=== PATIENT | male | born 1995 | race American Indian/Alaskan Native ===

== ENCOUNTER 2022-03-05 16:50 | Emergency (ER) | payer OTHER ==
[2022-03-05] MEDS ORDERED: ALPRAZolam 0.25 MG TAB PO ONE (17:44)
[2022-03-05] MEDS ORDERED: PANTOPRAZOLE 40 MG TAB PO ONE (17:44)
[2022-03-05] MEDS ORDERED: ACETAMINOPHEN 325 MG TAB PO ONE (17:44)
[2022-03-05] MEDS ORDERED: KETOROLAC 30 MG/1 ML INJ IM ONE (17:44)
--- NOTE | 2022-03-05 17:46 | Emergency Department Report ---
<MCKAYLA DIXON - Last Filed: 03/05/22 20:08> ED General Adult HPI - General Chief complaint: Extremity Problem,Nontraumatic Stated complaint: RT ARM PAIN PUI?: No Time Seen by Provider: 03/05/22 17:42 Source: patient, family, RN notes reviewed Mode of arrival: Ambulatory Limitations: No Limitations - History of Present Illness Initial comments: This patient is a pleasant and cooperative 26-year-old gentleman who is right- hand dominant, who presents to the ER today with a complaint of nontraumatic right posterior trapezius, and shoulder pain, that goes down his right posterior upper extremity. He also endorses central chest tightness. He denies DVT and PE risk factors. He has not taken any pain medication so far. He may have done repetitive heavy lifting but he is not certain. Denies additional injuries and complaints. Chest tightness does not radiate to the back, arms or neck. Denies vomiting, diaphoresis and exertional shortness of breath States pain started about 90 minutes prior to ER arrival -: hour(s) Location: chest, back, right, upper extremity Radiation: extremity Quality: aching Consistency: other (Chest pain central, chest wall, constant, increases with palpation. Right posterior muscular extremity increases with palpation and range of motion. It decreases with rest) - Related Data Previous Rx's Medication Instructions Recorded Last Taken Type Acetaminophen [Non-Aspirin Extra 500 mg PO Q6HR PRN #30 tablet 03/05/22 Unknown Rx Strength] Famotidine [Pepcid] 20 mg PO BID #30 tablet 03/05/22 Unknown Rx Ibuprofen [Motrin] 600 mg PO Q8H PRN #30 tablet 03/05/22 Unknown Rx Allergies Allergy/AdvReac Type Severity Reaction Status Date / Time No Known Allergies Allergy Verified 03/05/22 17:12 ED Review of Systems Constitutional: denies: fever Eyes: denies: eye discharge ENT: denies: congestion Respiratory: denies: cough Cardiovascular: chest pain Gastrointestinal: denies: abdominal pain, vomiting Musculoskeletal: myalgia Neurological: paresthesias ED Past Medical Hx - Medications Home Medications: Home Medications Medication Instructions Recorded Confirmed Last Taken Type Acetaminophen [Non-Aspirin Extra 500 mg PO Q6HR PRN #30 tablet 03/05/22 Unknown Rx Strength] Famotidine [Pepcid] 20 mg PO BID #30 tablet 03/05/22 Unknown Rx Ibuprofen [Motrin] 600 mg PO Q8H PRN #30 tablet 03/05/22 Unknown Rx ED Physical Exam - General Limitations: No Limitations General appearance: alert, in no apparent distress - Head Head exam: Present: atraumatic, normocephalic - Eye Eye exam: Present: normal appearance, EOMI. Absent: nystagmus - ENT ENT exam: Present: normal exam, normal orophraynx, mucous membranes moist, normal external ear exam - Neck Neck exam: Present: normal inspection, full ROM, other (Reproducible right posterior trapezius and paracervical muscular tenderness). Absent: tenderness, meningismus - Respiratory Respiratory exam: Present: normal lung sounds bilaterally, chest wall tenderness. Absent: respiratory distress, wheezes, rales, rhonchi, stridor, decreased breath sounds - Cardiovascular Cardiovascular Exam: Present: regular rate, normal rhythm, normal heart sounds. Absent: bradycardia, tachycardia, irregular rhythm, systolic murmur, diastolic murmur, rubs, gallop - GI/Abdominal GI/Abdominal exam: Present: soft. Absent: distended, tenderness, guarding, rebound, rigid, pulsatile mass - Rectal Rectal exam: Present: deferred - Extremities Exam Extremities exam: Present: normal inspection, full ROM, other (2+ pulses noted in the bilateral upper and lower extremities. There is no palpable cord. negative Homans sign. Muscular compartments are soft. The pelvis is stable.). Absent: pedal edema, calf tenderness - Back Exam Back exam: Present: normal inspection, muscle spasm, paraspinal tenderness. Absent: tenderness, CVA tenderness (R), CVA tenderness (L), vertebral tenderness - Neurological Exam Neurological exam: Present: alert, oriented X3, normal gait, reflexes normal, other (No facial droop. Tongue midline. Extraocular movements intact bilaterally. Facial sensation intact to light touch in V1, V2, V3 distribution bilaterally. 5 and a 5 strength in 4 extremities. Sensation intact to light touch in 4 extremities.). Absent: motor sensory deficit - Psychiatric Psychiatric exam: Present: normal affect, normal mood - Skin Skin exam: Present: warm, dry, intact, normal color. Absent: rash ED Course - Reevaluation(s) Reevaluation #1: 03/05/22 18:19 Differential diagnosis, including but not limited to: Muscular pain, strain, radiculopathy, costochondritis Assessment and plan: 26-year-old gentleman, who is afebrile, with reassuring vital signs, clinically sober, with a GCS of 15, with reproducible muscular chest wall pain and right posterior trapezius, right posterior upper extremity tenderness, without redness, pus or streaking, full range of motion in the bilateral upper and lower extremities, appropriate strength, sensation and reflexes, who is not currently tachycardic, tachypneic or hypoxic, who denies DVT/PE risk factors, PERC negative, low risk by Wells criteria, equal pulses in the upper and lower extremities, no pulsatile abdominal mass low risk for major adverse cardiac event as per heart score. Treat patient's symptoms, appropriate laboratory studies, EKG essentially unremarkable, chest x-ray unremarkable, and reassess. Discussed this with the patient. He is agreeable to the plan of care - Pulse Oximetry Interpretation Digit-Finger Initial Pulse Oximetry Readin O2 Sat by Pulse Oximetry: 99 Actions Taken: none ED Medical Decision Making - Lab Data Result diagrams: 03/05/22 18:05 03/05/22 18:05 Vital Signs 03/05/22 17:09 Temperature 97.7 F Pulse Rate 88 Respiratory 16 Rate Blood Pressure 143/95 [Left] O2 Sat by Pulse 100 Oximetry Lab Results 03/05/22 03/05/22 03/05/22 Range/Units 18:05 18:05 18:05 WBC 7.4 (4.5-11.0) K/mm3 RBC 5.24 H (3.65-5.03) M/mm3 Hgb 14.0 (11.8-15.2) gm/dl Hct 43.4 (35.5-45.6) % MCV 83 L (84-94) fl MCH 27 L (28-32) pg MCHC 32 (32-34) % RDW 15.0 (13.2-15.2) % Plt Count 208 (140-440) K/mm3 Sodium 141 (137-145) mmol/L Potassium 4.0 (3.6-5.0) mmol/L Chloride 102.4 (98-107) mmol/L Carbon Dioxide 25 (22-30) mmol/L Anion Gap 18 mmol/L BUN 12 (9-20) mg/dL Creatinine 1.2 (0.8-1.3) mg/dL Estimated GFR > 60 ml/min BUN/Creatinine Ratio 10 % Glucose 90 (75-100) mg/dL Calcium 9.2 (8.4-10.2) mg/dL Total Bilirubin 0.40 (0.1-1.2) mg/dL AST 24 (5-40) units/L ALT 24 (7-56) units/L Alkaline Phosphatase 74 (35-129) units/L Total Creatine Kinase 248 H (55-170) units/L Troponin T < 0.010 (0.00-0.029) ng/mL Total Protein 8.2 (6.3-8.2) g/dL Albumin 4.8 (3.9-5) g/dL Albumin/Globulin Ratio 1.4 % Lipase 30 (13-60) units/L - EKG Data -: EKG Interpreted by [facility] EKG shows normal: sinus rhythm Rate: normal - EKG Data When compared to previous EKG there are: previous EKG unavailable 03/05/22 18:15 EKG is interpreted at 17: 22 Sinus rhythm, 64 bpm. Normal axis, normal P wave axis, high left ventricular voltage, early repolarization. Age-appropriate/demographically appropriate EKG, not consistent with STEMI 03/05/22 20:08 - Radiology Data Radiology results: pending, report reviewed, image reviewed CHEST 2 VIEWS INDICATION / CLINICAL INFORMATION: chest tightness. COMPARISON: None available. FINDINGS: SUPPORT DEVICES: None. HEART / MEDIASTINUM: No significant abnormality. LUNGS / PLEURA: No significant pulmonary or pleural abnormality. No pneumothorax. ADDITIONAL FINDINGS: No significant additional findings. IMPRESSION: 1. No acute findings. Signer Name: Forrest Marx MD Signed: 03/05/2022 5:56 PM Workstation Name: [id number] ED Disposition Clinical Impression: Chest wall pain, Right arm pain Disposition: 01 HOME / SELF CARE / HOMELESS Is pt being admited?: No Condition: Good Instructions: Nonspecific Chest Pain, Adult Additional Instructions: Rest, and avoid heavy lifting. Avoid strenuous physical activities. Take the prescribed pain medications as needed and directed. Alternate ice packs and heat packs as needed for physical pain. Follow-up with a contract modeler or primary care doctor within the next 3 to 5 days. Please return to the emergency room right away with new pain, worsened pain, migration of pain, projectile vomiting, change in mental status, confusion, inability tolerate liquid feeds, new, worsened or different symptoms not present on the initial emergency room evaluation Prescriptions: Ibuprofen [Motrin] 600 mg PO Q8H PRN #30 tablet PRN Reason: Pain Acetaminophen [Non-Aspirin Extra Strength] 500 mg PO Q6HR PRN #30 tablet PRN Reason: Pain , Severe (7-10) Famotidine [Pepcid] 20 mg PO BID #30 tablet Referrals: [facility] [Provider Group] - 3-5 Days [facility], [Provider Group] - 3-5 Days Forms: Work/School Release Form(ED) Heart Score - HEART Score History: Slightly suspicious EKG: Non-specific Age: < 45 Risk factors: No known risk factors Troponin: < normal limit HEART Score: 1 - EKG Read Time Time EKG Completed: : EKG Read Time: :22 - Critical Actions Critical Actions: 0-3 pts:0.9-1.7%risk of adverse cardiac event.Candidate for discharge <LINDA ACKERMAN - Last Filed: 03/05/22 21:57> ED Review of Systems ROS: Stated complaint: RT ARM PAIN Other details as noted in HPI ED Course Vital Signs 03/05/22 03/05/22 17:09 20:10 Temperature 97.7 F Pulse Rate 88 Respiratory 16 Rate Blood Pressure 143/95 [Left] O2 Sat by Pulse 100 Oximetry O2 Sat by Pulse 99 Oximetry [ Digit-Finger] - Reevaluation(s) Reevaluation #2: 03/05/22 21:55 This patient handed to me at shift change at 9:00 waiting for the second troponin which came back negative. Patient continued to be stable and is appropriate to be discharged home with close follow-up with primary doctor. ED Medical Decision Making - Lab Data Result diagrams: 03/05/22 18:05 03/05/22 18:05 Critical care attestation.: If time is entered above; I have spent that time in minutes in the direct care of this critically ill patient, excluding procedure time. ED Disposition Is pt being admited?: No Does the pt Need Aspirin: No Time of Disposition: 21:56
[2022-03-05 18:47] LABS: Hematocrit 43.4 % (35.5-45.6); Mean Corpuscular HGB Conc 32 % (32-34); Mean Corpuscular Volume 83 fl (84-94); Platelet Count 208 K/mm3 (140-440); Red Blood Count 5.24 M/mm3 (3.65-5.03)
--- NOTE | 2022-03-05 19:00 | XRay Report ---
CHEST 2 VIEWS INDICATION / CLINICAL INFORMATION: chest tightness. COMPARISON: None available. FINDINGS: SUPPORT DEVICES: None. HEART / MEDIASTINUM: No significant abnormality. LUNGS / PLEURA: No significant pulmonary or pleural abnormality. No pneumothorax. ADDITIONAL FINDINGS: No significant additional findings. IMPRESSION: 1. No acute findings. Signer Name: Forrest Marx MD Signed: 03/05/2022 6:56 PM Workstation Name: [id number]
[2022-03-05 19:57] LABS: Alanine Aminotransferase 24 units/L (7-56); Albumin 4.8 g/dL (3.9-5); BUN/Creatinine Ratio 10; Blood Urea Nitrogen 12 mg/dL (9-20); Calcium 9.2 mg/dL (8.4-10.2); Hemolysis Index 12
[2022-03-05 23:44] VITALS: BP 126/91
--- NOTE | 2022-03-06 14:19 | Electrocardiograph Report ---
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
--- NOTE | 2022-03-06 14:21 | Electrocardiograph Report ---
[facility] Test Date: 2022-03-05 Test Time: 20:13:34 Pat Name: JUAN SOMMERS Department: Room: Gender: M Sales Product Specialist: MIHAELA : 1995 Requested By: MCKAYLA DIXON Order Number: [id number] Reading MD: Amos Powell Measurements Intervals [place] Rate: 57 P: 59 DC: 146 QRS: 69 QRSD: 74 T: 56 QT: 419 QTc: 409 Interpretive Statements Sinus bradycardia Early repolarization ST changes Compared to ECG 03/05/2022 17:22:46 No significant change Electronically Signed On 03-06-2022 14:21:13 EDT by Amos Powell
== END 2022-03-05 22:06 | disposition home or self-care (01) ==
LOC: ED 16:50
DX: R07.89 Other chest pain (principal); M79.601 Pain in right arm
CPT/HCPCS: 36415; 71046; 80053; 82550; 83690; 84484; 85027; 93005; 96372; 99284; J1885